=== PATIENT | female | born 2000 | race Caucasian/White ===

== ENCOUNTER 2022-01-21 13:51 | Emergency (ER) | payer BC, SELFPAY ==
--- NOTE | ~2022-01-21 | XR_ITS ---
EXAM: XR ankle LT min 3V, XR foot LT min 3V DATE: 01/21/2022 14:33 HISTORY: pain . COMPARISON: None available. FINDINGS: Normal mineralization. No fracture or dislocation. No lytic or blastic lesion. Joint space s are maintained. No erosion or periosteal change. Soft tissues within normal limits. IMPRESSION: No acute osseous finding in the left ankle or foot. Reviewed, dictated and finalized at location K. IMPRESSION: No acute osseous finding in the left ankle or foot.
[2022-01-21 14:00] VITALS: BP 129/76; PULSE 98; RESP 16; TEMP 36.2; O2SAT 100
[2022-01-21] MEDS: IBUPROFEN 600 MG TABLET PO (14:28)
--- NOTE | 2022-01-21 14:29 | ED.LOWEXIN ---
HPI - Extremity Injury (Lower) General Chief Complaint: Extremity Injury, Lower Stated Complaint: Ankle injury Time Seen by Provider: 01/21/22 14:13 Source: patient Mode of arrival: ambulatory Limitations: no limitations History of Present Illness HPI Narrative: 21-year-old patient with complaints of left ankle and foot pain after rolling her ankle when walking yesterday. Patient states she was walking on uneven ground and rolled her left ankle outward. Patient iced and use Tylenol yesterday but pain continued today. Patient states she is unable to bear weight without pain. Related Data Allergies Allergy/AdvReac Type Severity Reaction Status Date / Time No Known Drug Allergies Allergy Verified 04/21/12 23:13 Review of Systems Review of Systems: CONSTITUTIONAL: Denies fever, chills, or sweats. EYES: Denies visual changes, redness, or discharge. ENT: Denies rhinorrhea, congestion, sore throat, or otalgia. CARDIOVASCULAR: Denies chest pain, palpitations, or edema. RESPIRATORY: Denies cough or dyspnea. GASTROINTESTINAL: Denies abdominal pain, nausea, vomiting, or diarrhea. GENITOURINARY: Denies dysuria or hematuria. SKIN: Denies rash or itching. MUSCULOSKELETAL: Left ankle and foot pain. Denies back pain, joint pain, or myalgia. NEUROLOGIC: Denies headache, numbness, dizziness, or weakness. PSYCHIATRIC: Denies anxiety or depression. Exam Narrative: GENERAL: Well-appearing, well-nourished, and in no acute distress. HEAD: Normocephalic, atraumatic. EYES: PERRLA and EOMI. NECK: Supple. No adenopathy or masses. No carotid bruits or JVD CHEST: Clear to auscultation. No respiratory distress. No wheezes rales or rhonchi HEART: Regular rate and rhythm. No murmur heard. Normal peripheral pulses. ABDOMEN: Soft, nontender, nondistended, normal active bowel sounds. EXTREMITIES: Left lateral ankle pain with palpation. Minimal swelling noted to the left lateral ankle and left medial foot. No ecchymosis or lacerations/wounds noted. Patient with full range of motion but pain noted. Neurovascularly intact. SKIN: Warm, dry, no rash. NEURO: No focal deficits. Alert and oriented x3. PSYCH: Normal mood and affect. Course Course Emergency Course: X-ray reviewed with patient and mother who is at bedside. Patient aware no fracture. Left ankle sprain. Patient to be given Pelon wrap and crutches. She is aware to follow-up with primary or Ortho if pain persist at 1 week. Vital Signs Vital signs: Vital Signs Temperature 36.2 C L 01/21/22 14:00 Pulse Rate 98 01/21/22 14:00 Respiratory Rate 16 01/21/22 14:00 Blood Pressure 129/76 01/21/22 14:00 Pulse Oximetry 100 01/21/22 14:00 Oxygen Delivery Room Air 01/21/22 14:00 Temperature 36.2 C L 01/21/22 14:00 Pulse Rate 98 01/21/22 14:00 Respiratory Rate 16 01/21/22 14:00 Blood Pressure 129/76 01/21/22 14:00 Pulse Oximetry 100 01/21/22 14:00 Oxygen Delivery Room Air 01/21/22 14:00 MDM - Extremity Injury (Lower) MDM Narrative Medical decision making narrative: 21-year-old female HPI as noted. Suspect ankle sprain versus fracture. Foot x-ray and ankle x-ray negative for acute fracture. Patient treated for ankle sprain with Pelon wrap and crutches and instructed to follow-up with primary if pain continues. Differential Diagnosis Differential diagnosis: Likely ankle sprain and strain and ankle fracture Discharge Plan Discharge Clinical Impression: Ankle sprain and strain Patient Disposition: Home, Self-Care Condition: Stable Instructions: Antibiotic Form Additional Instructions: take ibuprofen as needed for pain. Weight bearing as tolerated. Follow up with primary or ortho if no improvement in 1 week. Return for any new or worsening symptoms. Prescriptions: New ibuprofen 600 mg tablet 600 mg PO QID PRN (Reason: pain) Qty: 90 0RF Follow-up/Referrals: Daniel,SHAUNNA Jones [Primary Care Provider] - Time of Disposition: 1
== END 2022-01-21 15:50 | disposition home or self-care (01) ==
PROVIDERS: Emergency Provider Nurse Practitioner Family; PCP Physician Assistant
DX: S93.402A Sprain of unspecified ligament of left ankle, initial encounter (principal); S96.912A Strain of unspecified muscle and tendon at ankle and foot level, left foot, initial encounter; X50.9XXA Other and unspecified overexertion or strenuous movements or postures, initial encounter
CPT/HCPCS: 73610; 73630; 99283; A9270

== ENCOUNTER 2023-12-27 10:01 | Outpatient (CLI) | payer BC, SELFPAY ==
--- NOTE | ~2023-12-27 | US_ITS ---
Limited Abdominal Sonogram: Real-time sonographic imaging of the right upper quadrant was performed. Clinical History: Irritable bowel syndrome Findings: The liver appears normal with no evidence of mass lesion or bile duct dilatation. Main por evi vein demonstrates normal direction of flow. The gallbladder is well distended, and appears normal with no evidence of gallstone or wall thickening. The common bile duct measures 4 mm. The visualize d pancreas, aorta, and IVC are unremarkable. Impression: No significant abnormality seen. Reviewed, dictated and finalized at location M. Impression: No significant abnormality seen.
== END 2023-12-27 10:02 ==
PROVIDERS: PCP Physician Assistant; Visit Provider Physician Assistant
DX: K58.0 Irritable bowel syndrome with diarrhea (principal)
CPT/HCPCS: 76705